=== PATIENT | male | born 1960 ===

== ENCOUNTER 2023-01-11 15:13 | Outpatient (REF) | payer MEDICARE, SELFPAY | END 2023-01-11 15:14 | disposition home or self-care (01) | LOC: HO.NEURO 15:13 | PROVIDERS: PCP Internal Medicine; Visit Provider Physician Assistant | DX: G56.03 Carpal tunnel syndrome, bilateral upper limbs (principal) | CPT/HCPCS: 95886; 95911 ==

== ENCOUNTER → 2023-01-11 15:19 | Outpatient (BNV) | payer MEDICARE, SELFPAY | PROVIDERS: PCP Internal Medicine; Visit Provider Physical Medicine & Rehabilitation | DX: G56.13 Other lesions of median nerve, bilateral upper limbs (principal); G56.03 Carpal tunnel syndrome, bilateral upper limbs | CPT/HCPCS: 95886; 95911 ==